=== PATIENT | female | born 1950 | race African-American/Black ===

== ENCOUNTER 2018-04-07 11:26 | Outpatient (CLI) | payer MEDICARE | END 2018-04-07 11:27 | disposition home or self-care (01) | LOC: BICMAMMO 11:26 | PROVIDERS: ATTEND Family Medicine | DX: Z12.31 Encounter for screening mammogram for malignant neoplasm of breast (principal) | CPT/HCPCS: 77063; 77067 ==

== ENCOUNTER 2018-04-15 14:23 | Outpatient (CLI) | payer MEDICARE | END 2018-04-15 14:24 | disposition home or self-care (01) | LOC: BICMAMMO 14:23 | PROVIDERS: ATTEND Family Medicine | DX: R92.8 Other abnormal and inconclusive findings on diagnostic imaging of breast (principal) | CPT/HCPCS: 76642; 77065; G0279 ==

== ENCOUNTER 2018-05-27 12:38 | Outpatient (CLI) | payer MEDICARE ==
[2018-05-27 13:55] LABS: Bilirubin Negative (Negative); Blood, Urine Negative (Negative); Clarity CLEAR (Clear); Glucose, Urine (Dipstick) Negative (Negative); Leukocyte Negative (Negative); Nitrite Negative (Negative); Protein, Urine (Dipstick) Negative (Neg-Trace); Specific Gravity, Urine 1.005 (1.002-1.036); Urobilinogen 0.2 mg/dL (0.2-1.0)
[2018-05-27 14:00] LABS: Bacteria/HPF None Seen HPF (None Seen); Hyaline Casts/LPF 0-3 HYALINE CAST LPF (0-3 Hyaline); RBC/HPF 0-3 HPF (0-3); Squamous Epithelial None Seen HPF (0-3); WBC/HPF None Seen HPF (0-3)
[2018-05-27 14:03] LABS: PTT 29.4 SEC (22.9-36.1); Prothrombin Time 13.1 SEC (12.0-14.7)
[2018-05-27 14:12] LABS: Anion Gap 9 mmol/L (10-20); BUN (Urea Nitrogen) 12 mg/dL (9.8-20.1); Calc. Creatinine Clearance 0 mL/min (70-130); Calcium 9.6 mg/dL (7.8-10.44); Carbon Dioxide 30 mmol/L (23-31); Chloride 105 mmol/L (98-107); Estimated GFR-MDRD 88; Glucose 88 mg/dL (80-115); Potassium 3.3 mmol/L (3.5-5.1); Sodium 141 mmol/L (136-145)
[2018-05-27 14:21] LABS: #Lymphocytes 1.4 thou/uL (1.20-3.40); #Monocytes 0.5 thou/uL (0.11-0.59); #Neutrophils 4.2 thou/uL (1.40-6.50); %Basophils 0.7 % (0.0-1.0); %Eosinophils 0.6 % (0.0-10.0); %Lymphocytes 21.9 % (21.0-51.0); %Monocytes 8.1 % (0.0-10.0); %Neutrophils 68.7 % (42.0-75.0); Hemoglobin 12.1 g/dL (12.0-16.0); Mean Corpuscular HGB CONC 33.6 g/dL (32.0-36.0); Mean Corpuscular Hemoglobin 31.7 pg (27.0-31.0); Mean Corpuscular Volume 94.5 fL (78.0-98.0); Mean Platelet Volume 9.2 fL (7.4-10.4); PLT Morphology Comment PLT clumps seen-ADEQ; RBC Distribution Width 11.3 % (11.5-14.5); White Blood Cell (WBC) Count 6.2 thou/uL (4.8-10.8)
[2018-05-27 16:09] LABS: MDiff Complete? YES
--- NOTE | 2018-05-27 17:15 | EKG ---
Test Reason : Blood Pressure : / mmHG Vent. Rate : 064 BPM Atrial Rate : 064 BPM P-R Int : 188 ms QRS Dur : 110 ms QT Int : 386 ms P-R-T Axes : 058 054 098 degrees QTc Int : 398 ms Normal sinus rhythm Abnormal ECG Confirmed by EVERT DELCID ([id number]) on 05/27/2018 5:14:52 PM Referred By: BRONSON Confirmed By:EVERT DELCID
== END 2018-05-27 12:39 | disposition home or self-care (01) ==
LOC: LABBT 12:38
PROVIDERS: ATTEND Orthopaedic Surgery
DX: Z01.818 Encounter for other preprocedural examination (principal); M17.11 Unilateral primary osteoarthritis, right knee
CPT/HCPCS: 80048; 81001; 85025; 85610; 85730; 87081; 93005; 93010

== ENCOUNTER 2018-06-14 15:01 | Outpatient (CLI) | payer MEDICARE ==
[2018-06-14 16:04] LABS: Anion Gap 14 mmol/L (10-20); BUN (Urea Nitrogen) 19 mg/dL (9.8-20.1); Calc. Creatinine Clearance 0 mL/min (70-130); Calcium 9.5 mg/dL (7.8-10.44); Carbon Dioxide 27 mmol/L (23-31); Chloride 105 mmol/L (98-107); Estimated GFR-MDRD 65; Glucose 131 mg/dL (80-115); Potassium 4.1 mmol/L (3.5-5.1); Sodium 142 mmol/L (136-145)
== END 2018-06-14 15:02 | disposition home or self-care (01) ==
LOC: LABBT 15:01
PROVIDERS: ATTEND Orthopaedic Surgery
DX: Z01.812 Encounter for preprocedural laboratory examination (principal); M17.11 Unilateral primary osteoarthritis, right knee
CPT/HCPCS: 80048; 86850; 86900; 86901

== ENCOUNTER 2018-06-15 06:58 | Inpatient (IN) | payer MEDICARE ==
[2018-05-27 13:05] VITALS: BMI 36.7
[2018-06-15] MEDS ORDERED: Vancomycin HCl 1.5 GM in Sodium Chloride 0.9% 250 ML 300 ML IVPB SCH ×2 (08:15→21:00)
[2018-06-15] MEDS ORDERED: Fentanyl 100 MCG/2 ML VIAL ONE (08:18)
[2018-06-15] MEDS ORDERED: Midazolam HCl 2 mg/2 ml Vial ONE (08:18)
[2018-06-15] MEDS ORDERED: Promethazine HCl 25 MG/ML VIAL IM PRN ×2 (08:28→11:40)
[2018-06-15] MEDS ORDERED: Ketorolac Tromethamine 30 MG/ML VIAL IVP PRN (08:28)
[2018-06-15] MEDS ORDERED: Zolpidem Tartrate 5 MG TAB PO PRN (08:28)
[2018-06-15] MEDS ORDERED: HYDROcodone/Acetaminophen 10/325 mg Tablet PO PRN ×2 (08:28)
[2018-06-15] MEDS ORDERED: Ondansetron HCl/PF 4 MG/2 ML Vial IVP PRN ×2 (08:28→11:40)
[2018-06-15] MEDS ORDERED: traMADol HCl 50 MG TAB PO PRN (08:28)
[2018-06-15] MEDS ORDERED: Fentanyl 100 MCG/2 ML VIAL IV PRN (08:29)
[2018-06-15] MEDS ORDERED: CEFAZOLIN/Water 2 GM/20 ML SYRINGE ONE (08:34)
[2018-06-15] MEDS ORDERED: Sodium Chloride 0.9% 100 ML ONE (08:34)
[2018-06-15] MEDS ORDERED: Bupivacaine/Epinephrine 0.25% 30 ML VIAL ONE (09:33)
[2018-06-15] MEDS ORDERED: HYDROmorphone 2 MG/ML VIAL ONE (09:40)
--- NOTE | 2018-06-15 10:26 | HP ---
ADMITTING DIAGNOSIS: Right knee osteoarthritis. HISTORY OF PRESENT ILLNESS: Ms. Mack is a 68-year-old female who presents to me with constant pain in her right knee, stiffness in the morning long periods of time. Notes weather changes, cannot walk long distances. No previous history of surgery, knee pain 04/06. Previous injection gave her good r elief. The patient lives alone, has 4 steps. She presents today to have surgery. PAST MEDICAL HISTORY: Hypertension, anemia, arthritis, high cholesterol, migraines. PAST SURGICAL HISTORY: Hysterectomy, x3, tonsillectomy, hemorrhoidectomy, colonoscopy, tub al ligation, internal hemorrhoidectomy. MEDICATIONS: Include amlodipine, aspirin, atorvastatin, furosemide, Naproxen. ALLERGIES: No known drug allergies. SOCIAL HISTORY: The patient is single, has 3 children. Retired. No alcohol. Does exercise. PHYSICAL EXAMINATION: VITAL SIGNS: Afebrile, resting comfortably in bed. GENERAL: Alert, communicative, resting comfortably in bed in no acute distress. EXTREMITIES: Right knee shows moderate effusion. Alignment and mild varus lateral and medial joint line tenderness, 90 degrees of motion, 2+ laxity. The patient has sensation intact with 2+ pulse. N ormal skin. No changes. Right knee films show tricompartmental osteoarthritis. IMPRESSION: Right knee osteoarthritis. PLAN: The patient will undergo right total knee arthroplasty. I discussed with the patient the risk s and benefits of procedure including pain, scar, bleeding, infection, damage to vital structures, de creased range of motion or strength, nonunion, fracture need for further surgeries, failure of proced ure, continued pain despite surgical management. The patient understands the risks and benefits and elects to proceed. She will receive vancomycin, Ancef and TXA preoperatively.
[2018-06-15] MEDS ORDERED: Promethazine HCl 25 MG/ML VIAL SLOW IVP PRN (11:40)
[2018-06-15] MEDS ORDERED: HYDROmorphone 2 MG/ML VIAL SLOW IVP PRN (11:40)
[2018-06-15] MEDS ORDERED: Tranexamic Acid 1,000 MG in Sodium Chloride 0.9% 100 ML IVPB SCH (11:45)
[2018-06-15] MEDS ORDERED: Acetaminophen 325 MG TAB PO PRN (13:03)
[2018-06-15] MEDS ORDERED: diphenhydrAMINE 25 MG CAP PO PRN (13:03)
[2018-06-15] MEDS: Sodium Chloride 0.9% 1,000 ML IV SCH (13:34)
[2018-06-15] MEDS ORDERED: Ropivacaine 0.5% HCl/PF (150 MG/30 ML VIAL) ONE (13:47)
[2018-06-15] MEDS ORDERED: Ropivacaine 0.2% HCl/PF (40 MG/20 ML VIAL) ONE (13:47)
--- NOTE | 2018-06-15 14:15 | RAD ---
TWO VIEWS RIGHT KNEE: 06/15/18 HISTORY: Postop total knee. FINDINGS: Postsurgical changes related to right total knee prosthesis are noted. No hardware complication is se en. Subcutaneous edema and emphysema are seen about the knee related to recent postsurgical changes. No fracture or dislocation is seen. IMPRESSION: Postsurgical changes related to recent right total knee replacement. POS: [facility]
[2018-06-15] MEDS ORDERED: Ketorolac Tromethamine 30 MG/ML VIAL ONE (14:35)
[2018-06-15] MEDS ORDERED: Dexamethasone 20 MG/5 ML VIAL ONE (14:35)
[2018-06-15] MEDS ORDERED: Ondansetron HCl/PF 4 MG/2 ML Vial ONE (14:35)
[2018-06-15] MEDS ORDERED: Lidocaine 1% PF 5 ML VIAL ONE (14:35)
[2018-06-15] MEDS ORDERED: PROPOFOL 200 MG/20 ML VIAL ONE (14:35)
[2018-06-15] MEDS ORDERED: ePHEDrine/0.9% NaCl/PF SYRINGE 50 mg/10 ml ONE (14:35)
--- NOTE | 2018-06-15 17:14 | PDOC.PN ---
- Subjective Encounter Start Date: 06/15/18 Encounter Start Time: 16:20 Pt seen for management of medical comorbidities, including hypertension. Denies chest pain, shortness of breath, fevers or chills. - Objective MAR Reviewed: Yes Vital Signs & Weight: Weight Weight 201 lb Additional Labs: Labs reviewed by me Phys Exam - Physical Examination Constitutional: NAD HEENT: moist MMs Neck: supple Respiratory: clear to auscultation bilateral Cardiovascular: RRR Gastrointestinal: soft s/p R knee surgery Neurological: moves all 4 limbs Psychiatric: normal affect Dx/Plan (1) HTN (hypertension) Code(s): I10 - ESSENTIAL (PRIMARY) HYPERTENSION Status: Chronic Comment: Resume amlodipine/benazepril, monitor vital signs and titrate antihypertensives as needed (2) Dyslipidemia Code(s): E78.5 - HYPERLIPIDEMIA, UNSPECIFIED Status: Chronic Comment: continue statin (3) Arthritis Code(s): M19.90 - UNSPECIFIED OSTEOARTHRITIS, UNSPECIFIED SITE Status: Chronic Comment: s/p R knee surgery - Plan * . DVT prophylaxis and pain management per primary service Review of Systems - Review of Systems Cardiovascular: negative: chest pain, palpitations, orthopnea, paroxysmal nocturnal dyspnea, edema, light headedness Gastrointestinal: negative: Nausea, Vomiting, Abdominal Pain, Diarrhea, Constipation, Melena, Hematochezia - Medications/Allergies Allergies/Adverse Reactions: Allergies Allergy/AdvReac Type Severity Reaction Status Date / Time No Known Allergies Allergy Verified 05/27/18 13:06 Medications: Current Medications Acetaminophen (Tylenol) 650 mg PO Q4H PRN PRN Reason: MERINO/ T > 101F; Mild Pain (1-3) Hydrocodone Bitart/Acetaminophen ([place] 10/325) 1 tab PO Q4H PRN PRN Reason: Pain (1-3) Hydrocodone Bitart/Acetaminophen ([place] 10/325) 2 tab PO Q4H PRN PRN Reason: PAIN (4-6) Aspirin (Ecotrin) 81 mg PO BID AV Atorvastatin Calcium (Lipitor) 20 mg PO QAM AV Cefazolin Sodium (Ancef) 2 gm SLOW IVP 0200,1000,1800 AV Stop: 06/16/18 02:01 Diphenhydramine HCl (Benadryl) 25 mg PO Q6H PRN PRN Reason: Itching Fentanyl (Sublimaze) 50 mcg IV Q1H PRN PRN Reason: BREAKTHROUGH PAIN Ferrous Gluconate (Fergon) 324 mg PO BID [facility] Furosemide (Lasix) 20 mg PO QAM AV Ropivacaine 250 ml/ Device 250 mls @ 0 mls/hr NERVE BLCK INF [facility] Sodium Chloride (Normal Saline 0.9%) 1,000 mls @ 100 mls/hr IV .Q10H AV Last Admin: 06/15/18 13:34 Dose: Not Given Vancomycin HCl 1.5 gm/ Sodium (Chloride) 300 mls @ 200 mls/hr IVPB 2100 AV Stop: 06/15/18 22:29 Iron/Minerals/Multivitamins (Theragran M) 1 tab PO DAILY [facility] Ketorolac Tromethamine (Toradol) 15 mg IVP Q6H PRN PRN Reason: Moderate Pain (4-6) Stop: 06/18/18 08:29 Non-Formulary Medication (Amlodipine Besylate/Benazepril [Amlodipine Besylate/ Benazepril]) 1 tab PO QAM [facility] Ondansetron HCl (Zofran) 4 mg IVP Q6H PRN PRN Reason: Nausea/Vomiting Last Admin: 06/15/18 14:55 Dose: 4 mg Promethazine HCl (Phenergan) 12.5 mg IM Q4H PRN PRN Reason: Nausea Senna/Docusate Sodium (Senokot S) 2 tab PO BID [facility] Sodium Chloride (Flush - Normal Saline) 10 ml IVF Q12HR [facility] Sodium Chloride (Flush - Normal Saline) 10 ml IVF PRN PRN PRN Reason: Saline Flush Sodium Chloride (Flush - Normal Saline) 10 ml IVF PRN PRN PRN Reason: Saline Flush Tramadol HCl (Ultram) 50 mg PO Q6H PRN PRN Reason: Mild Pain (1-3) Tramadol HCl (Ultram) 100 mg PO Q6H PRN PRN Reason: Moderate Pain 4-6 Zolpidem Tartrate (Ambien) 5 mg PO HSPRN PRN PRN Reason: Insomnia
[2018-06-15] MEDS: CEFAZOLIN/Water 2 GM/20 ML SYRINGE SLOW IVP SCH (17:21)
[2018-06-15] MEDS: traMADol HCl 50 MG TAB PO PRN (20:20)
[2018-06-15] MEDS: Aspirin 81 mg Enteric Coated Tablet PO SCH (20:21)
[2018-06-15] MEDS: Ferrous Gluconate 324 MG TAB PO SCH (20:21)
[2018-06-15] MEDS: Senokot S 8.6-50 MG TAB PO SCH (20:21)
[2018-06-16] MEDS: Sodium Chloride 0.9% 1,000 ML IV SCH ×3 (00:09→19:37)
[2018-06-16] MEDS: CEFAZOLIN/Water 2 GM/20 ML SYRINGE SLOW IVP SCH (01:36)
[2018-06-16 06:04] LABS: Hemoglobin 10.2 g/dL (12.0-16.0); Mean Corpuscular HGB CONC 33.2 g/dL (32.0-36.0); Mean Corpuscular Hemoglobin 31.8 pg (27.0-31.0); Mean Corpuscular Volume 95.6 fL (78.0-98.0); Mean Platelet Volume 9.6 fL (7.4-10.4); Platelet Count 163 thou/uL (130-400); Red Blood Cell (RBC) Count 3.23 mill/uL (4.20-5.40); White Blood Cell (WBC) Count 10.3 thou/uL (4.8-10.8)
[2018-06-16] MEDS: Senokot S 8.6-50 MG TAB PO SCH ×2 (08:11→20:53)
[2018-06-16] MEDS: Aspirin 81 mg Enteric Coated Tablet PO SCH ×2 (08:12→20:52)
[2018-06-16] MEDS: Multivitamin W/ Minerals 1 TAB PO SCH (08:12)
[2018-06-16] MEDS: Atorvastatin Calcium 20 MG TAB PO SCH (08:12)
[2018-06-16] MEDS: Ferrous Gluconate 324 MG TAB PO SCH ×2 (08:12→20:53)
[2018-06-16] MEDS: Furosemide 20 MG TAB PO SCH (08:12)
[2018-06-16] MEDS: Amlodipine 5 mg/Benazepril 20 mg CAP PO SCH (09:58)
--- NOTE | 2018-06-16 11:44 | OP ---
DATE OF PROCEDURE: 06/15/2018 PREOPERATIVE DIAGNOSIS: Right knee osteoarthritis with flexion contracture. POSTOPERATIVE DIAGNOSIS: Right knee osteoarthritis with flexion contracture. PROCEDURE PERFORMED: Right total knee arthroplasty. STAFF: Dr. Gary Vigil [employer] SUPERVISOR: JOSIANE Cornoy ANESTHESIA: [place]. The patient received a LMA with a single shot sciatic and had a canal indwelling catheter. ESTIMATED BLOOD LOSS: 100 mL. TOURNIQUET TIME: 77 minutes at 300 mmHg. ANTIBIOTICS: Ancef 2 grams and vancomycin 1.5 grams, TXA 1 gram. IMPLANTS: [place] size 4 femur, size 3 tibia, 11 cruciate retaining and A29 patella [place] Triathlon implants, Simplex cement. COMPLICATIONS: None. HISTORY OF PRESENT ILLNESS: Ms. Mack is a pleasant 68-year-old female who presented to me with right knee pain that has been present for years. The patient had good pain relief with an injection. She had severe valgus deformity with about 29 degrees of motion. I discussed with her pre and postoperative care as well as the possible complications. I discussed the risks and benefits of surgery to include pain, scar, bleeding, infection, damage to vital structures, decreased range of motion or strength, need for further surgeries, failure of procedure, revision, fracture above or below, continued stiffness. I discussed given the patient's preoperative stiffness I was most concerned about that postoperatively. She understood the risks and benefits and would like to proceed PROCEDURE IN DETAIL: Timeout was performed designating the patient's right lower extremity as the operative site based on site, consents, markings. After completion of timeout, the patient's right lower extremity was prepped and draped in sterile fashion. Tourniquet was brought up and left for a total of 77 minutes. Anterior midline approach medial patellar arthrotomy was performed. We excised the fat pad, remove osteophytes. The patient was difficult to sublux because of her significant posterior osteophytes as well as patellar osteophytes. We knocked off some osteophytes off the trochlea as well as cleaned up the patella to help to better ellie the patella and flex the patient. We pinned our tray into position. We mapped and cut 0 degrees varus valgus with about 4 degrees anterior slope and 8 and 10 respectively. We then placed our menisci, we did a medial soft tissue release. We placed our guide, 3 degrees of external rotation. We pinned our tray into position. We cut our size 4. There was a large medial osteophyte that still remained this is a deformity. We removed all the anterior, posterior chamfer cuts, removed osteophytes decompressed the gutter. We then had taken down the patient's ACL, exposed the PCL. We had to do a notchplasty and knocked out some of the overgrown bone on ACL and PCL. After we brought the tibia, we mapped out the tibia, cut at 4 degrees posterior slope with about 1 and 6 mm respectively mediolaterally. We then removed all the bone. We removed our medial osteophyte , placed our limb stove mechanic laterally. We did decompressed the large bone posterior decompressive the MCL both by taking medial plateau osteophytes as well as the cleaning gutter more, we decreased the intact PCL and did tenting. After we had done that we completely remove the meniscus. We moved laterally, did the same thing, removed lateral meniscus, decompressed the knee, completely decompressed the PCL, removed the remnant ACL. I felt like we had a good overall visualization placed at 3. We floated a 3 with a 9 and moved up to an 11, had good full extension, flexion, good rotation. We pinned the tray based off of floating within the knee for rotational alignment, the pin down the tibia as well as rotation with the anterior tibial tubercle. I liked the overall alignment and position, we pinned it in place. We actually went from a 9, like I said to an 11. After completion of this she had full extension, good overall flexion, good overall rotation, was slightly tight in flexion, otherwise looked good. We then cut the patient's patella. She had a very essentially worn patella. We cut from about 25 to 24 and sized to about 12-13 mm. We drilled our A29 patella. The patient tracked well. We then drilled our lugs for our femur, cut our keel for tibia, removed all implants. We cemented our tibia, placed our poly after we had removed excess cement. We centered our femur, removed excess cement. We then brought the patient in extension, removed all cement, and flexion to ensure there was nothing else in the notch or any other loose bodies. Washed the joint. We then closed in a standard position first, made our lithotomy lineup with #2 Vicryl. We did 2 Quill, 0 Quill, 2-0 Quill in a semi-flexed position. We then placed glue for the skin. The patient will be admitted for postop protocol. She received vancomycin, Ancef and TXA. Postop the patient will be followed in-house. PARVEZ
[2018-06-16] MEDS: Ropivacaine HCl/PF 250 ML in Premix Bag 1 BAG NERVE BLCK SCH (12:28)
[2018-06-16] MEDS: traMADol HCl 50 MG TAB PO PRN (17:49)
[2018-06-17] MEDS: Sodium Chloride 0.9% 1,000 ML IV SCH ×2 (03:24→15:46)
[2018-06-17 05:33] LABS: Hemoglobin 10.1 g/dL (12.0-16.0); Mean Corpuscular HGB CONC 33.8 g/dL (32.0-36.0); Mean Corpuscular Hemoglobin 32.1 pg (27.0-31.0); Mean Corpuscular Volume 94.8 fL (78.0-98.0); Mean Platelet Volume 9.4 fL (7.4-10.4); Platelet Count 128 thou/uL (130-400); RBC Distribution Width 11.1 % (11.5-14.5); Red Blood Cell (RBC) Count 3.15 mill/uL (4.20-5.40); White Blood Cell (WBC) Count 8.2 thou/uL (4.8-10.8)
[2018-06-17] MEDS: Ferrous Gluconate 324 MG TAB PO SCH ×2 (09:25→20:18)
[2018-06-17] MEDS: Senokot S 8.6-50 MG TAB PO SCH ×2 (09:25→20:21)
[2018-06-17] MEDS: Amlodipine 5 mg/Benazepril 20 mg CAP PO SCH (09:25)
[2018-06-17] MEDS: Furosemide 20 MG TAB PO SCH (09:26)
[2018-06-17] MEDS: Multivitamin W/ Minerals 1 TAB PO SCH (09:26)
[2018-06-17] MEDS: Atorvastatin Calcium 20 MG TAB PO SCH (09:26)
[2018-06-17] MEDS: Aspirin 81 mg Enteric Coated Tablet PO SCH ×2 (09:26→20:19)
[2018-06-17] MEDS: Ropivacaine HCl/PF 250 ML in Premix Bag 1 BAG NERVE BLCK SCH (14:48)
--- NOTE | 2018-06-17 15:08 | PDOC.PN ---
- Subjective Encounter Start Date: 06/16/18 Encounter Start Time: 09:15 -: old records requested/rev Pt seen and examined, chart reviewed in its entirety, this is my first visit with this patient Pt sitting on the side of the bed, about to get up with PT. epidural still in place. NO f/C, no N/V/dc/, pain controlled adequately No new complaints All systems reviewed and neg x as above - Objective MAR Reviewed: Yes Vital Signs & Weight: Vital Signs (12 hours) Temp Pulse Resp BP Pulse Ox 06/17/18 11:52 98.7 F 62 14 115/45 L 95 06/17/18 08:49 98.7 F 64 14 128/69 91 L 06/17/18 07:54 95 06/17/18 03:58 99.1 F 64 19 134/73 95 Weight Admit Weight 201 lb Weight 201 lb I&O: 06/16/18 06/17/18 06/18/18 06:59 06:59 06:59 Intake Total 2500 2040 Output Total 2200 375 Balance 300 1665 Result Diagrams: 06/17/18 04:38 Radiology Reviewed by me: Yes EKG Reviewed by me: Yes Phys Exam - Physical Examination Constitutional: NAD HEENT: PERRLA, moist MMs, sclera anicteric, oral pharynx no lesions Neck: no nodes, no JVD, supple, full ROM Respiratory: no wheezing, no rales, no rhonchi, clear to auscultation bilateral Cardiovascular: RRR, no significant murmur, no rub Gastrointestinal: soft, non-tender, no distention, positive bowel sounds Musculoskeletal: edema present Neurological: non-focal, normal sensation, moves all 4 limbs Lymphatic: no nodes Psychiatric: normal affect, A&O x 3 Skin: no rash, normal turgor, cap refill <2 seconds Dx/Plan (1) Arthritis Code(s): M19.90 - UNSPECIFIED OSTEOARTHRITIS, UNSPECIFIED SITE Status: Chronic Comment: s/p R knee surgery (2) Dyslipidemia Code(s): E78.5 - HYPERLIPIDEMIA, UNSPECIFIED Status: Chronic Comment: continue statin (3) HTN (hypertension) Code(s): I10 - ESSENTIAL (PRIMARY) HYPERTENSION Status: Chronic Qualifiers: Hypertension type: essential hypertension Qualified Code(s): I10 - Essential (primary) hypertension Comment: contine amlodipine/benazepril, monitor vital signs and titrate antihypertensives as needed - Plan cont current plan of care, PT/OT, executive secretary social welfare, out of bed/ambulate * .
--- NOTE | 2018-06-17 15:09 | PDOC.PN ---
- Subjective Encounter Start Date: 06/17/18 Encounter Start Time: 15:15 doing well, no acute events, no new complaint,s pain controlled No f/c, no n/V/D/C, no CP or SOB All systems reviewed and neg x as above - Objective MAR Reviewed: Yes Vital Signs & Weight: Vital Signs (12 hours) Temp Pulse Resp BP Pulse Ox 06/17/18 11:52 98.7 F 62 14 115/45 L 95 06/17/18 08:49 98.7 F 64 14 128/69 91 L 06/17/18 07:54 95 06/17/18 03:58 99.1 F 64 19 134/73 95 Weight Admit Weight 201 lb Weight 201 lb I&O: 06/16/18 06/17/18 06/18/18 06:59 06:59 06:59 Intake Total 2500 2040 Output Total 2200 375 Balance 300 1665 Result Diagrams: 06/17/18 04:38 Phys Exam - Physical Examination Constitutional: NAD HEENT: PERRLA, moist MMs, sclera anicteric, oral pharynx no lesions Neck: no nodes, no JVD, supple, full ROM Respiratory: no wheezing, no rales, no rhonchi, clear to auscultation bilateral Cardiovascular: RRR, no significant murmur, no rub Gastrointestinal: soft, non-tender, no distention, positive bowel sounds Musculoskeletal: no edema, pulses present Neurological: non-focal, normal sensation, moves all 4 limbs Lymphatic: no nodes Psychiatric: normal affect, A&O x 3 Skin: no rash, normal turgor, cap refill <2 seconds Dx/Plan (1) Arthritis Code(s): M19.90 - UNSPECIFIED OSTEOARTHRITIS, UNSPECIFIED SITE Status: Chronic Comment: s/p R knee surgery (2) Dyslipidemia Code(s): E78.5 - HYPERLIPIDEMIA, UNSPECIFIED Status: Chronic Comment: continue statin (3) HTN (hypertension) Code(s): I10 - ESSENTIAL (PRIMARY) HYPERTENSION Status: Chronic Qualifiers: Hypertension type: essential hypertension Qualified Code(s): I10 - Essential (primary) hypertension Comment: contine amlodipine/benazepril, monitor vital signs and titrate antihypertensives as needed - Plan cont current plan of care, PT/OT, social work case manager, out of bed/ambulate * . dispo per pt, primary team, CM
[2018-06-18] MEDS: Sodium Chloride 0.9% 1,000 ML IV SCH (00:18)
[2018-06-18 05:33] LABS: Hemoglobin 9.6 g/dL (12.0-16.0); Mean Corpuscular HGB CONC 32.8 g/dL (32.0-36.0); Mean Corpuscular Hemoglobin 31.7 pg (27.0-31.0); Mean Corpuscular Volume 96.4 fL (78.0-98.0); Platelet Count 164 thou/uL (130-400); RBC Distribution Width 11.1 % (11.5-14.5); Red Blood Cell (RBC) Count 3.04 mill/uL (4.20-5.40); White Blood Cell (WBC) Count 8.4 thou/uL (4.8-10.8)
[2018-06-18] MEDS: Ferrous Gluconate 324 MG TAB PO SCH (10:00)
[2018-06-18] MEDS: Aspirin 81 mg Enteric Coated Tablet PO SCH (10:00)
[2018-06-18] MEDS: Multivitamin W/ Minerals 1 TAB PO SCH (10:00)
[2018-06-18] MEDS: Atorvastatin Calcium 20 MG TAB PO SCH (10:00)
[2018-06-18] MEDS: Furosemide 20 MG TAB PO SCH (10:01)
[2018-06-18] MEDS: Senokot S 8.6-50 MG TAB PO SCH (10:01)
[2018-06-18 12:19] VITALS: BP 137/86; TEMP 99.4
--- NOTE | 2018-06-18 12:24 | PDOC.PN ---
- Subjective Encounter Start Date: 06/18/18 Encounter Start Time: 12:22 follow up for medical management. to [facility] pending insurance approval , expecting to go today No F/C, no N/V/d/C, pain controlled, no acute overnight events, no new complaints All systesm reviewed and neg x as above - Objective MAR Reviewed: Yes Vital Signs & Weight: Vital Signs (12 hours) Temp Pulse Resp BP BP Pulse Ox 06/18/18 12:18 99.4 F 67 16 137/86 95 06/18/18 07:19 99.3 F 78 16 137/67 92 L 06/18/18 05:10 99.3 F 06/18/18 04:40 99.6 F 06/18/18 04:23 100 F H 67 18 131/69 95 06/18/18 00:32 99.6 F 81 18 119/74 93 L Weight Admit Weight 201 lb Weight 201 lb I&O: 06/17/18 06/18/18 06/19/18 06:59 06:59 06:59 Intake Total 2040 1580 Output Total 375 Balance 1665 1580 Result Diagrams: 06/18/18 05:06 Phys Exam - Physical Examination Constitutional: NAD HEENT: PERRLA, moist MMs, sclera anicteric, oral pharynx no lesions Neck: no nodes, no JVD, supple, full ROM Respiratory: no wheezing, no rales, no rhonchi, clear to auscultation bilateral Cardiovascular: RRR, no significant murmur, no rub Gastrointestinal: soft, non-tender, no distention, positive bowel sounds Musculoskeletal: edema present Neurological: non-focal, normal sensation, moves all 4 limbs Lymphatic: no nodes Psychiatric: normal affect, A&O x 3 Skin: no rash, normal turgor, cap refill <2 seconds Dx/Plan (1) Dyslipidemia Code(s): E78.5 - HYPERLIPIDEMIA, UNSPECIFIED Status: Chronic Comment: continue statin (2) HTN (hypertension) Code(s): I10 - ESSENTIAL (PRIMARY) HYPERTENSION Status: Chronic Qualifiers: Hypertension type: essential hypertension Qualified Code(s): I10 - Essential (primary) hypertension Comment: contine amlodipine/benazepril, monitor vital signs and titrate antihypertensives as needed (3) Arthritis Code(s): M19.90 - UNSPECIFIED OSTEOARTHRITIS, UNSPECIFIED SITE Status: Chronic Comment: s/p R knee surgery - Plan cont current plan of care, PT/OT, high school social science teacher, out of bed/ambulate * .
[2018-06-18] MEDS: Amlodipine 5 mg/Benazepril 20 mg CAP PO SCH (13:31)
== END 2018-06-18 14:57 | disposition swing bed (61) | DRG 470 ==
LOC: SDC 06:58 → SJJU 12:28
PROVIDERS: ADMIT Orthopaedic Surgery; ATTEND Orthopaedic Surgery
PROC: 0SRC0J9 Replacement of Right Knee Joint with Synthetic Substitute, Cemented, Open Approach (ICD-10-PCS; principal; 2018-06-15)
DX: M17.11 Unilateral primary osteoarthritis, right knee (principal); I10 Essential (primary) hypertension; G43.909 Migraine, unspecified, not intractable, without status migrainosus; E78.5 Hyperlipidemia, unspecified; Z90.710 Acquired absence of both cervix and uterus
CPT/HCPCS: 36415; 80048; 85027; 86850; 86900; 86901; A4216; C1713; C1776; G8978-GP-CK; G8979-GP-CI; G8987-GO-CJ; G8988-GO-CI; J1100; J1170; J1885; J2001; J2250; J2405; J2704; J2795; J3010; J3370; J7050

== ENCOUNTER 2019-10-17 07:14 | Outpatient (CLI) | payer MEDICARE ==
--- NOTE | 2019-10-24 18:33 | EKG ---
Test Reason : Blood Pressure : / mmHG Vent. Rate : 067 BPM Atrial Rate : 067 BPM P-R Int : 186 ms QRS Dur : 108 ms QT Int : 336 ms P-R-T Axes : 061 071 -31 degrees QTc Int : 355 ms Normal sinus rhythm Nonspecific T wave abnormality Abnormal ECG When compared with ECG of 27-MAY-2018 12:53, T wave inversion no longer evident in Lateral leads Confirmed by JUAN DAVID ANGELO, SReanna ([id number]) on 10/24/2019 6:32:43 PM Referred By: BRONSON Confirmed By:DR. Bala FALL MD
== END 2019-10-17 07:15 | disposition home or self-care (01) ==
LOC: LABBT 07:14
PROVIDERS: ATTEND Orthopaedic Surgery
DX: Z01.810 Encounter for preprocedural cardiovascular examination (principal); M16.12 Unilateral primary osteoarthritis, left hip
CPT/HCPCS: 93005; 93010

== ENCOUNTER 2019-10-17 10:30 | Inpatient (IN) | payer MEDICARE ==
[2019-10-17 10:26] VITALS: BMI 36.6
[2019-10-17 11:25] LABS: #Basophils 0.1 thou/uL (0.0-0.2); #Eosinphils 0.1 thou/uL (0.0-0.7); #Lymphocytes 1.2 thou/uL (1.20-3.40); #Monocytes 0.5 thou/uL (0.11-0.59); #Neutrophils 4.8 thou/uL (1.40-6.50); %Basophils 0.8 % (0.0-1.0); %Eosinophils 1.1 % (0.0-10.0); %Lymphocytes 18.2 % (21.0-51.0); %Monocytes 7.7 % (0.0-10.0); %Neutrophils 72.2 % (42.0-75.0); Hemoglobin 12.3 g/dL (12.0-16.0); Mean Corpuscular HGB CONC 33.9 g/dL (32.0-36.0); Mean Corpuscular Hemoglobin 32.5 pg (27.0-31.0); Mean Platelet Volume 8.5 fL (7.4-10.4); Platelet Count 191 thou/uL (130-400); Red Blood Cell (RBC) Count 3.79 mill/uL (4.20-5.40); White Blood Cell (WBC) Count 6.7 thou/uL (4.8-10.8)
[2019-10-17 11:39] LABS: Prothrombin Time 13.4 SEC (12.0-14.7)
[2019-10-17 11:40] LABS: Anion Gap 12 mmol/L (10-20); BUN (Urea Nitrogen) 15 mg/dL (9.8-20.1); Calc. Creatinine Clearance 0 mL/min (70-130); Calcium 9.6 mg/dL (7.8-10.44); Carbon Dioxide 29 mmol/L (23-31); Chloride 106 mmol/L (98-107); Estimated GFR-MDRD 86; Glucose 110 mg/dL (83-110); Potassium 3.6 mmol/L (3.5-5.1); Sodium 143 mmol/L (136-145)
[2019-10-17 12:09] LABS: Bacteria/HPF None Seen HPF (None Seen); Bilirubin Negative (Negative); Blood, Urine Negative (Negative); Clarity Clear (Clear); Glucose, Urine (Dipstick) Normal (Negative); Leukocyte Negative Leu/uL (Negative); Nitrite Negative (Negative); Protein, Urine (Dipstick) Negative (Neg-Trace); RBC/HPF 0-3 HPF (0-3); Squamous Epithelial 0-3 HPF (0-3); Urobilinogen Normal mg/dL (Less than 2); WBC/HPF 0-3 HPF (0-3)
[2019-10-18] MEDS ORDERED: Midazolam HCl 2 mg/2 ml Vial ONE (08:12)
[2019-10-18] MEDS ORDERED: Fentanyl 100 MCG/2 ML VIAL ONE ×3 (08:12→12:06)
[2019-10-18] MEDS ORDERED: Sodium Chloride 0.9% 100 ML ONE (08:19)
[2019-10-18] MEDS ORDERED: Vancomycin 1.5 GRAM/300 ML BAG 1.5 GM/300 ML BAG ONE (08:19)
[2019-10-18] MEDS ORDERED: Tranexamic Acid 1,000 MG/10 ML VIAL ONE (08:19)
[2019-10-18] MEDS ORDERED: diphenhydrAMINE 50 MG/ML VIAL IM PRN (09:00)
[2019-10-18] MEDS ORDERED: Hydrocerin (Eucerin) Cream 120 gm Jar TOP PRN (09:00)
[2019-10-18] MEDS ORDERED: Promethazine HCl 25 MG SUPP PR PRN (09:00)
[2019-10-18] MEDS ORDERED: diphenhydrAMINE 50 MG/ML VIAL IVP PRN (09:00)
[2019-10-18] MEDS ORDERED: Ketorolac Tromethamine 30 MG/ML VIAL IVP PRN (09:00)
[2019-10-18] MEDS ORDERED: HYDROcodone/Acetaminophen 5/325 mg Tablet PO PRN (09:00)
[2019-10-18] MEDS ORDERED: Ondansetron PF 4 MG/2 ML Vial IVP PRN (09:00)
[2019-10-18] MEDS ORDERED: Promethazine HCl 25 MG/ML VIAL IM PRN ×2 (09:00→11:13)
[2019-10-18] MEDS ORDERED: Zolpidem Tartrate 5 MG TAB PO PRN (09:00)
[2019-10-18] MEDS ORDERED: Bupivacaine 0.25% 10 ML VIAL EPIDURAL PRN (09:00)
[2019-10-18] MEDS ORDERED: Naloxone HCl 0.4 mg/ml Vial IV PRN (09:00)
[2019-10-18] MEDS ORDERED: Naloxone HCl 0.4 mg/ml Vial IVP PRN (09:00)
[2019-10-18] MEDS ORDERED: traMADol HCl 50 MG TAB PO PRN ×2 (09:00)
[2019-10-18] MEDS ORDERED: diphenhydrAMINE 25 MG CAP PO PRN (09:00)
[2019-10-18] MEDS ORDERED: Ropivacaine 0.2% HCl/PF 20 ML ONE (09:42)
[2019-10-18] MEDS ORDERED: PACU-Morphine 4MG/ML VIAL SLOW IVP PRN (11:13)
[2019-10-18] MEDS ORDERED: Promethazine HCl 25 MG/ML VIAL SLOW IVP PRN (11:13)
[2019-10-18] MEDS ORDERED: Meperidine HCl/PF 25 MG/ML VIAL SLOW IVP PRN (11:13)
[2019-10-18] MEDS ORDERED: Lidocaine 1.5%/Epinephrine 1:200,000 5 ML AMPUL IJ ONE (11:32)
[2019-10-18] MEDS ORDERED: Ondansetron PF 4 MG/2 ML Vial ONE (11:32)
[2019-10-18] MEDS ORDERED: Lidocaine 1% PF 5 ML VIAL ONE (11:32)
[2019-10-18] MEDS ORDERED: Glycopyrrolate 0.2 MG/ML 5 ML SYRINGE ONE (11:32)
[2019-10-18] MEDS ORDERED: Rocuronium Bromide 10 MG/ML (10ML VIAL) ONE (11:32)
[2019-10-18] MEDS ORDERED: Dexamethasone 20 MG/5 ML VIAL ONE (11:32)
[2019-10-18] MEDS ORDERED: Metoclopramide HCl 10 MG/2 ML VIAL ONE (11:32)
[2019-10-18] MEDS ORDERED: ePHEDrine/0.9% NaCl/PF SYRINGE 50 mg/10 ml ONE (11:32)
[2019-10-18] MEDS ORDERED: PROPOFOL 200 MG/20 ML VIAL ONE (11:32)
[2019-10-18] MEDS ORDERED: HYDROcodone/Acetaminophen 10/325 mg Tablet PO PRN ×2 (12:04)
[2019-10-18] MEDS ORDERED: Acetaminophen 325 MG TAB PO PRN (12:04)
--- NOTE | 2019-10-18 13:13 | RAD ---
Exam: XR Hip Lt 1 View HISTORY: Post left total hip prosthesis COMPARISON: AP view pelvis also obtained on this date FINDINGS: As noted on the AP view pelvis, there is evidence of a left total hip prosthesis without evidence of a hardware complication. No obvious fracture is appreciated. IMPRESSION: Postsurgical changes related to left total hip prosthesis.
--- NOTE | 2019-10-18 13:13 | RAD ---
EXAM: XR Pelvis AP STANDARD PROVIDED CLINICAL HISTORY: Total hip arthroplasty. COMPARISON: None FINDINGS: There are postsurgical changes related to left total hip prosthesis. No obvious hardware complication is seen on this exam. No fracture or dislocation is identified. There is mild osteoarthritis involving the right hip. Mild degenerative changes are seen at the pubic symphysis. Mora catheter ov erlies the midline of the pelvis. IMPRESSION: 1. Evidence of left total hip prosthesis.
[2019-10-18] MEDS: Dextrose 5 %-0.45 % NaCl 1,000 ML IV SCH ×2 (16:18→23:42)
[2019-10-18] MEDS: CEFAZOLIN 2 GM in Premix Bag 1 BAG IVPB SCH (16:18)
[2019-10-18] MEDS ORDERED: Chloraseptic Spray 180 ml Bottle PO PRN (18:09)
[2019-10-18] MEDS ORDERED: Acetaminophen 650 MG Suppository PR PRN (18:33)
[2019-10-18] MEDS ORDERED: Vancomycin HCl 1.5 GM in Sodium Chloride 0.9% 250 ML 300 ML IVPB SCH (20:30)
[2019-10-18] MEDS ORDERED: Famotidine/PF 20 mg/2ml Vial SLOW IVP SCH (21:00)
[2019-10-18] MEDS: Ferrous Gluconate 324 MG TAB PO SCH (21:03)
--- NOTE | 2019-10-18 21:03 | CON ---
DATE OF CONSULTATION: 10/18/2019 TIME OF ASSESSMENT: 1400. REASON FOR CONSULTATION: Medical management. CHIEF COMPLAINT: Sore throat. HISTORY OF PRESENT ILLNESS: Ms. Mack is a pleasant 69-year-old woman, who is status post a left total hip replacement done earlier today. The patient currently states she feels well except for mild sore throat and swelling of the left side of her upper and lower lip. She denies having any difficulty with her breathing or swelling of her tongue. No rash or itching. The patient states that she was told she likely had a reaction to the tape that was on her lip during the surgery. She has been given Benadryl. Other than that, she has absolutely no complaints. Denies any chest pain or shortness of breath. No dizziness. She has had something to eat and states she tolerated it well without any nausea or vomiting. Denies any abdominal pain. PAST MEDICAL HISTORY: 1. Hyperlipidemia. 2. Hypertension. PAST SURGICAL HISTORY: 1. . 2. Hysterectomy. 3. Tonsillectomy. 4. Left total hip replacement done today, 10/18/2019. SOCIAL HISTORY: The patient lives with her family. Denies any alcohol consumption, tobacco use, or illicit drug use. FAMILY HISTORY: Reports a history of CHF in her mother. ALLERGIES: NO KNOWN DRUG ALLERGIES. CURRENT MEDICATIONS: 1. Amlodipine. 2. Aspirin. 3. Atorvastatin. 4. Vitamin D3. 5. Vitamin . 6. Naproxen. PHYSICAL EXAMINATION: GENERAL: The patient appears well developed, well nourished, is in no acute distress. VITAL SIGNS: Temperature 97.7, pulse 65, respirations 18, O2 saturation 98% on 2 L by nasal cannula, blood pressure 115/67. HEENT: Normocephalic and atraumatic. Pupils are equal, round, and reactive to light. Sclerae without icterus. Oropharynx is clear. However, left upper and lower lip notable for swelling. No erythema. No bleeding or discharge. No other areas of swelling or edema involving her face. Tongue, unremarkable. NECK: Supple with some slight tenderness with palpation of the left side of her neck. Full range of motion. LUNGS: Clear to auscultation bilaterally without any wheezes, rales, or rhonchi. CARDIAC: Regular rate and rhythm. ABDOMEN: Soft, obese, nontender, nondistended. Normoactive bowel sounds present. No guarding or rigidity. No renal angle tenderness. EXTREMITIES: No lower leg swelling or edema. Mechanical SCDs in place. NEUROLOGIC: Alert and oriented x3. SKIN: Warm and dry. No rash or hives. LABORATORY DATA: White count 6.7, hemoglobin 12.3, hematocrit 36.4, platelets 191, neutrophils 72.2. PT 13.4, INR 1. Sodium 143, potassium 3.6, BUN 15, creatinine 0.80, GFR 86, glucose 110, calcium 9.6. Urinalysis unremarkable. Hip x-ray done on 10/18/2018. Postsurgical changes related to left total hip prosthesis. Similar findings seen on the pelvic x-ray. IMPRESSION AND PLAN: 1. Ms. Mack is a pleasant 69-year-old woman, who is status post left total hip replacement, referred for medical management. The patient apparently had some sort of localized reaction to the tape that was on her lip during surgery. That was removed and she has some residual swelling, limited to the left side of her upper and lower lip with no erythema or any other rash or hives involving her face or any other part of her body. Mild sore throat. We will give her Chloraseptic to help with this. No dysphagia. No difficulty breathing. She has Benadryl ordered p.r.n. She will need continuous monitoring. 2. She has a known history of hypertension and hyperlipidemia. Her home medications have already been reconciled. Continue to monitor blood pressure. We will repeat labs in the morning. 3. GI prophylaxis with famotidine. 4. Deep venous thrombosis prophylaxis with mechanical SCDs. 5. The patient is full code. Surrogate decision maker is Brennanjosue Mack. The patient's case discussed with attending who agrees with plan of care as described above. Job ID: [id number]
[2019-10-18] MEDS: Atorvastatin Calcium 20 MG TAB PO SCH (21:04)
[2019-10-18] MEDS: Aspirin 81 mg Enteric Coated Tablet PO SCH (21:04)
[2019-10-18] MEDS: Senokot S 8.6-50 MG TAB PO SCH (21:04)
[2019-10-19] MEDS: CEFAZOLIN 2 GM in Premix Bag 1 BAG IVPB SCH (00:13)
[2019-10-19] MEDS: fentaNYL Citrate/PF 500 MCG, Bupivacaine 10 ML in Sodium Chloride 0.9% 80 ML EPIDURAL SCH ×2 (03:58→20:25)
[2019-10-19 05:40] LABS: #Lymphocytes 0.5 thou/uL (1.20-3.40); #Neutrophils 6.4 thou/uL (1.40-6.50); %Basophils 0.2 % (0.0-1.0); %Lymphocytes 6.5 % (21.0-51.0); %Monocytes 12.7 % (0.0-10.0); %Neutrophils 80.6 % (42.0-75.0); Hemoglobin 9.8 g/dL (12.0-16.0); Mean Corpuscular Hemoglobin 32.5 pg (27.0-31.0); Mean Corpuscular Volume 95.6 fL (78.0-98.0); Mean Platelet Volume 8.4 fL (7.4-10.4); Platelet Count 171 thou/uL (130-400); RBC Distribution Width 10.8 % (11.5-14.5); Red Blood Cell (RBC) Count 3.01 mill/uL (4.20-5.40); White Blood Cell (WBC) Count 7.9 thou/uL (4.8-10.8)
[2019-10-19 05:53] LABS: Anion Gap 11 mmol/L (10-20); BUN (Urea Nitrogen) 12 mg/dL (9.8-20.1); Calc. Creatinine Clearance 88 mL/min (70-130); Calcium 8.5 mg/dL (7.8-10.44); Carbon Dioxide 28 mmol/L (23-31); Chloride 104 mmol/L (98-107); Estimated GFR-MDRD 81; Glucose 152 mg/dL (83-110); Sodium 139 mmol/L (136-145)
[2019-10-19] MEDS: Senokot S 8.6-50 MG TAB PO SCH ×2 (08:49→20:28)
[2019-10-19] MEDS: Multivitamin W/ Minerals 1 TAB PO SCH (08:49)
[2019-10-19] MEDS: Aspirin 81 mg Enteric Coated Tablet PO SCH ×2 (08:50→20:25)
[2019-10-19] MEDS: Cyanocobalamin (Vitamin B-12) 1,000 MCG TAB PO SCH (08:50)
[2019-10-19] MEDS: Ferrous Gluconate 324 MG TAB PO SCH ×2 (08:50→20:28)
[2019-10-19] MEDS ORDERED: Lisinopril 20 MG TAB PO SCH (09:00)
[2019-10-19] MEDS ORDERED: Prevnar 13-Val Conj/PF 0.5 ML SYRINGE IM ONE (09:00)
[2019-10-19] MEDS ORDERED: Amlodipine 10 MG TAB PO SCH (09:00)
[2019-10-19] MEDS ORDERED: FLU VACC TS2019-20(65YR UP)/PF 180 MCG/0.5 ML SYRINGE IM ONE (09:00)
[2019-10-19] MEDS ORDERED: Chloraseptic Spray 180 ml Bottle PO PRN (09:23)
[2019-10-19] MEDS ORDERED: Cepastat Lozenges 1 LOZ PO PRN (09:23)
[2019-10-19] MEDS ORDERED: Famotidine 20 MG TAB PO SCH (09:30)
[2019-10-19] MEDS ORDERED: Loratadine 10 MG TAB PO SCH (09:30)
[2019-10-19] MEDS: Amlodipine 5 MG TAB PO SCH ×2 (10:03→20:25)
[2019-10-19] MEDS: Dextrose 5 %-0.45 % NaCl 1,000 ML IV SCH ×2 (10:03→18:53)
--- NOTE | 2019-10-19 13:33 | OP ---
DATE OF PROCEDURE: 10/18/2019 PREOPERATIVE DIAGNOSIS: Left hip osteoarthritis. POSTOPERATIVE DIAGNOSIS: Left hip osteoarthritis. PROCEDURE PERFORMED: Left total hip arthroplasty. MARK UP DESIGNER: Carlo Dumont PA-C ANESTHESIA: The patient received general with epidural. ESTIMATED BLOOD LOSS: 250 cc mL. TOURNIQUET TIME: None. ANTIBIOTICS: Ancef 2 g, vancomycin 1.5 g, and TXA 1 g. IMPLANTS: Neida Trident PSL acetabular shell 50 mm, Trident 10-degree poly insert 36 mm, a Biolox Delta ceramic head 36 mm, -2.5 and a size 4 Accolade II 132- degree neck angle stem. COMPLICATIONS: None. INDICATIONS FOR PROCEDURE: Ms. Mack is a pleasant 69-year-old female presented with close to a year of left hip pain. The patient failed conservative measures and desired to proceed with a left total hip arthroplasty. I discussed with the patient risks and benefits of left total hip arthroplasty to include pain, scar, bleeding, infection, damage to vital structures, decreased range of motion and strength, continued pain, fracture above or below the stem, damage to vital structures, loss of life or limb. The patient and family understood the risks and benefits of the procedure, elected to proceed. DESCRIPTION OF PROCEDURE: Time-out was performed designating the patient's left lower extremity as the operative site based on site, consents, and marking. After the patient was placed in a lateral position with bony problems well padded, the patient had an axillary roll placed. A lateral incision was made down through skin and down to the IT band. The gluteus medius and minimus were taken up the flag to expose the capsule. The capsule was T'd and tagged. We dislocated the hip, cut the femoral neck, removed it, placed acetab retractors posteriorly, sequentially reamed up to a 50, ultimately placed a 50 PSL. We had knocked osteophytes off using our trial to decrease the peripheral osteophytes that would diminish the risk of dislocation. We placed our 10-degree liner and after placed our final cup in apppropriate version, we then moved back the femoral neck. We broached first of 3, trialed long with standard, went back to 4, was still loose, had good firm fit, placed our [address], placed 4 -2.5. This had good shuck and good range of motion. No impingement She seemed long by few millimeters. We washed and we closed the capsule with #2 Vicryl, closed the gluteus minimus to both bone tunnels as well as soft tissue with #2 Vicryl, closed the IT band with #2 Stratafix, 0 Stratafix, 2-0 Stratafix and glue. The patient will be weightbearing as tolerated. She will be admitted back to Joint Unit. We will follow inhouse. Job ID: [id number] [facility]
[2019-10-19] MEDS: HYDROcodone/Acetaminophen 5/325 mg Tablet PO PRN (17:32)
[2019-10-19] MEDS: Atorvastatin Calcium 20 MG TAB PO SCH (20:28)
[2019-10-19] MEDS: Famotidine 20 MG TAB PO SCH ×2 (20:28→20:43)
[2019-10-19] MEDS: Lisinopril 10 MG TAB PO SCH (20:28)
--- NOTE | 2019-10-19 22:26 | PDOC.HOSPP ---
- Subjective Encounter Date: 10/19/19 Encounter Time: 11:30 Subjective: Patient seen and examined med mgt. Lip swelling improving. No other complaints. No overnight events - Objective Vital Signs & Weight: Vital Signs (12 hours) Temp Pulse Resp BP BP Pulse Ox 10/19/19 20:30 98.8 F 73 16 117/69 93 L 10/19/19 20:28 117/69 10/19/19 20:25 73 117/69 10/19/19 20:08 93 L 10/19/19 15:14 98.6 F 71 18 147/77 H 96 10/19/19 12:20 98.6 F 61 18 117/71 94 L Weight Admit Weight 200 lb Weight 200 lb I&O: 10/18/19 10/19/19 10/20/19 06:59 06:59 06:59 Intake Total 2700 1950 Output Total 1375 625 Balance 1325 1325 Result Diagrams: 10/20/19 05:03 10/19/19 05:10 EKG Reviewed by me: Yes (SR) Hospitalist ROS - Review of Systems Respiratory: denies: cough, dry, shortness of breath, hemoptysis, SOB with excertion, pleuritic pain, sputum, wheezing, other Cardiovascular: denies: chest pain, palpitations, orthopnea, paroxysmal noc. dyspnea, edema, light headedness, other - Medication Medications: Active Medications Generic Name Dose Route Start Last Admin Trade Name Freq PRN Reason Stop Dose Admin Hydrocodone Bitart/Acetaminophen 1 tab 10/18/19 09:00 10/19/19 17:32 [place] 5/325 PO 1 tab Q4H PRN Administration Mild Pain 1-3 Amlodipine Besylate 5 mg 10/19/19 09:00 10/19/19 20:25 Norvasc PO 5 mg BID AV Administration Aspirin 81 mg 10/18/19 21:00 10/19/19 20:25 Ecotrin PO 81 mg BID AV Administration Atorvastatin Calcium 20 mg 10/18/19 21:00 10/19/19 20:28 Lipitor PO 20 mg HS AV Administration Cholecalciferol 5,000 units 10/19/19 09:00 10/19/19 08:49 Vitamin D3 PO 5,000 units DAILY AV Administration Cyanocobalamin 1,000 mcg 10/19/19 09:00 10/19/19 08:50 Vitamin B-12 PO 1,000 mcg DAILY AV Administration Famotidine 20 mg 10/19/19 21:00 10/19/19 20:28 Pepcid PO 20 mg BID AV Administration Famotidine 20 mg 10/19/19 21:00 10/19/19 20:43 Pepcid PO Not Given BID AV Ferrous Gluconate 324 mg 10/18/19 21:00 10/19/19 20:28 Fergon PO 324 mg BID AV Administration Fentanyl Citrate 500 mcg/ 100 mls @ 0 mls/hr 10/18/19 09:00 10/19/19 20:25 Bupivacaine HCl 10 ml/ Sodium EPIDURAL 100 mls Chloride INF AV Administration As Directed Dextrose/Sodium Chloride 1,000 mls @ 100 mls/hr 10/18/19 12:04 10/19/19 18:53 D5 1/2 Ns IV Not Given .Q10H AV Iron/Minerals/Multivitamins 1 tab 10/19/19 09:00 10/19/19 08:49 Theragran M PO 1 tab DAILY AV Administration Lisinopril 10 mg 10/19/19 21:00 10/19/19 20:28 Zestril PO 10 mg BID AV Administration Senna/Docusate Sodium 2 tab 10/18/19 21:00 10/19/19 20:28 Senokot S PO 2 tab BID AV Administration - Exam General Appearance: NAD Heart: RRR, no gallops Respiratory: no wheezes, no rales, no ronchi Gastrointestinal: non-tender, non-distended, normal bowel sounds Extremities: no cyanosis, no clubbing Hosp A/P - Plan DVT proph w/SCDs Suspected allergic reaction HTN Obesity BMI 36.6 HLD DJD CKD 2 PLAN: Cont H1,H2 blockers Cont Amlodipine and Lisinopril with holding parameters Cont PT/OT Cont other meds as above Full code. DPAO - self/family
[2019-10-20] MEDS: Dextrose 5 %-0.45 % NaCl 1,000 ML IV SCH ×2 (04:21→14:03)
[2019-10-20 05:13] LABS: Hemoglobin 9.8 g/dL (12.0-16.0); Mean Corpuscular HGB CONC 32.9 g/dL (32.0-36.0); Mean Corpuscular Hemoglobin 31.7 pg (27.0-31.0); Mean Corpuscular Volume 96.2 fL (78.0-98.0); Mean Platelet Volume 7.8 fL (7.4-10.4); Platelet Count 153 thou/uL (130-400); Red Blood Cell (RBC) Count 3.09 mill/uL (4.20-5.40); White Blood Cell (WBC) Count 7.9 thou/uL (4.8-10.8)
[2019-10-20] MEDS: Ferrous Gluconate 324 MG TAB PO SCH ×2 (09:07→22:06)
[2019-10-20] MEDS: Cyanocobalamin (Vitamin B-12) 1,000 MCG TAB PO SCH (09:08)
[2019-10-20] MEDS: Senokot S 8.6-50 MG TAB PO SCH ×2 (09:08→22:06)
[2019-10-20] MEDS: Famotidine 20 MG TAB PO SCH ×3 (09:08→22:06)
[2019-10-20] MEDS: Lisinopril 10 MG TAB PO SCH (09:08)
[2019-10-20] MEDS: Multivitamin W/ Minerals 1 TAB PO SCH (09:08)
[2019-10-20] MEDS: Aspirin 81 mg Enteric Coated Tablet PO SCH ×2 (09:08→22:06)
[2019-10-20] MEDS: Amlodipine 5 MG TAB PO SCH (09:08)
[2019-10-20] MEDS: Loratadine 10 MG TAB PO SCH (09:09)
[2019-10-20] MEDS: HYDROcodone/Acetaminophen 5/325 mg Tablet PO PRN (10:05)
[2019-10-20] MEDS ORDERED: Polyethylene Glycol 3350 17 GM Packet PO PRN (20:26)
--- NOTE | 2019-10-20 20:26 | PDOC.HOSPP ---
- Subjective Encounter Date: 10/20/19 Encounter Time: 11:30 Subjective: Patient seen and examined for med mngt. No CP/SOB. Lip swelling improving. No new complaints. No overnight events - Objective Vital Signs & Weight: Vital Signs (12 hours) Temp Pulse Resp BP BP BP Pulse Ox 10/20/19 15:21 99.6 F 70 16 110/66 89 L 10/20/19 13:08 117/55 L 10/20/19 11:46 99.8 F H 75 18 90/53 L 95 10/20/19 09:08 68 124/84 91 L Weight Admit Weight 200 lb Weight 200 lb I&O: 10/19/19 10/20/19 10/21/19 06:59 06:59 06:59 Intake Total 2700 2350 1475 Output Total 1375 1100 200 Balance 1325 1250 1275 Result Diagrams: 10/20/19 05:03 10/19/19 05:10 Hospitalist ROS - Review of Systems Respiratory: denies: cough, dry, shortness of breath, hemoptysis, SOB with excertion, pleuritic pain, sputum, wheezing, other Cardiovascular: denies: chest pain, palpitations, orthopnea, paroxysmal noc. dyspnea, edema, light headedness, other - Medication Medications: Active Medications Generic Name Dose Route Start Last Admin Trade Name Freq PRN Reason Stop Dose Admin Hydrocodone Bitart/Acetaminophen 1 tab 10/18/19 09:00 10/20/19 10:05 [place] 5/325 PO 1 tab Q4H PRN Administration Mild Pain 1-3 Aspirin 81 mg 10/18/19 21:00 10/20/19 09:08 Ecotrin PO 81 mg BID AV Administration Atorvastatin Calcium 20 mg 10/18/19 21:00 10/19/19 20:28 Lipitor PO 20 mg HS AV Administration Cholecalciferol 5,000 units 10/19/19 09:00 10/20/19 09:07 Vitamin D3 PO 5,000 units DAILY AV Administration Cyanocobalamin 1,000 mcg 10/19/19 09:00 10/20/19 09:08 Vitamin B-12 PO 1,000 mcg DAILY AV Administration Famotidine 20 mg 10/19/19 21:00 10/20/19 09:22 Pepcid PO Not Given BID AV Ferrous Gluconate 324 mg 10/18/19 21:00 10/20/19 09:07 Fergon PO 324 mg BID AV Administration Fentanyl Citrate 500 mcg/ 100 mls @ 0 mls/hr 10/18/19 09:00 10/19/19 20:25 Bupivacaine HCl 10 ml/ Sodium EPIDURAL 100 mls Chloride INF AV Administration As Directed Iron/Minerals/Multivitamins 1 tab 10/19/19 09:00 10/20/19 09:08 Theragran M PO 1 tab DAILY AV Administration Loratadine 10 mg 10/20/19 09:00 10/20/19 09:09 Claritin PO 10 mg DAILY AV Administration Senna/Docusate Sodium 2 tab 10/18/19 21:00 10/20/19 09:08 Senokot S PO 2 tab BID AV Administration - Exam General Appearance: NAD Heart: RRR, no gallops Respiratory: no wheezes, no rales Gastrointestinal: non-tender, non-distended Extremities: no cyanosis Neurological: no new deficit Hosp A/P - Plan DVT proph w/SCDs Suspected allergic reaction - improving HTN Obesity BMI 36.6 HLD DJD CKD 2 PLAN: Cont H1,H2 blockers DC Amlodipine Reduce Lisinopril dose Cont PT/OT Cont other meds
[2019-10-20] MEDS ORDERED: Lisinopril 5 MG TAB PO SCH (21:00)
[2019-10-20] MEDS ORDERED: Amlodipine 5 MG TAB PO SCH (21:00)
[2019-10-20] MEDS: Atorvastatin Calcium 20 MG TAB PO SCH (22:06)
[2019-10-21 05:21] LABS: Hemoglobin 9.2 g/dL (12.0-16.0); Mean Corpuscular HGB CONC 33.7 g/dL (32.0-36.0); Mean Corpuscular Hemoglobin 32.2 pg (27.0-31.0); Mean Corpuscular Volume 95.6 fL (78.0-98.0); Platelet Count 148 thou/uL (130-400); Red Blood Cell (RBC) Count 2.87 mill/uL (4.20-5.40); White Blood Cell (WBC) Count 7.7 thou/uL (4.8-10.8)
[2019-10-21] MEDS ORDERED: Potassium Chloride 10 MEQ TAB PO SCH (08:00)
[2019-10-21] MEDS ORDERED: Furosemide 20 MG TAB PO SCH (08:00)
[2019-10-21] MEDS ORDERED: Lisinopril 5 MG TAB PO SCH (09:00)
[2019-10-21] MEDS: Aspirin 81 mg Enteric Coated Tablet PO SCH (09:14)
[2019-10-21] MEDS: Famotidine 20 MG TAB PO SCH (09:15)
[2019-10-21] MEDS: Ferrous Gluconate 324 MG TAB PO SCH (09:15)
[2019-10-21] MEDS: Cyanocobalamin (Vitamin B-12) 1,000 MCG TAB PO SCH (09:15)
[2019-10-21] MEDS: Senokot S 8.6-50 MG TAB PO SCH (09:16)
[2019-10-21] MEDS: Loratadine 10 MG TAB PO SCH (09:16)
[2019-10-21] MEDS: Multivitamin W/ Minerals 1 TAB PO SCH (09:16)
[2019-10-21 13:34] VITALS: BP 116/80; TEMP 98.5
--- NOTE | 2019-10-21 18:27 | PDOC.HOSPP ---
- Subjective Encounter Date: 10/21/19 Encounter Time: 09:00 Subjective: Patient seen and examined for med mngt. No CP/fever or chills. No new complaints. No overnight events - Objective Vital Signs & Weight: Vital Signs (12 hours) Temp Pulse Resp BP BP Pulse Ox 10/21/19 12:00 98.5 F 67 16 116/80 95 10/21/19 09:16 70 140/84 10/21/19 08:00 98.1 F 70 16 140/84 93 L 10/21/19 07:50 93 L Weight Admit Weight 200 lb Weight 200 lb I&O: 10/20/19 10/21/19 10/22/19 06:59 06:59 06:59 Intake Total 2350 1715 Output Total 1100 200 Balance 1250 1515 Result Diagrams: 10/21/19 05:06 10/19/19 05:10 Hospitalist ROS - Review of Systems Respiratory: denies: cough, dry, shortness of breath, hemoptysis, SOB with excertion, pleuritic pain, sputum, wheezing, other Cardiovascular: denies: chest pain, palpitations, orthopnea, paroxysmal noc. dyspnea, edema, light headedness, other - Exam Neck: no JVD Gastrointestinal: non-distended Extremities: no edema Psychiatric: normal affect, A&O x 3 Hosp A/P - Plan Suspected allergic reaction - resolved HTN Obesity BMI 36.6 HLD DJD CKD 2 PLAN: Advised pt to monitor BP on daily basis - hold BP meds if SBP <120 Cont PT/OT Cont other meds Will s/o
== END 2019-10-21 13:53 | disposition swing bed (61) | DRG 470 ==
LOC: SURG A 10-18 07:01 → SURG B 10-18 14:21
PROVIDERS: ADMIT Orthopaedic Surgery; ATTEND Orthopaedic Surgery
PROC: 0SRB04A Replacement of Left Hip Joint with Ceramic on Polyethylene Synthetic Substitute, Uncemented, Open Approach (ICD-10-PCS; principal; 2019-10-18)
DX: M16.12 Unilateral primary osteoarthritis, left hip (principal); E78.5 Hyperlipidemia, unspecified; E66.9 Obesity, unspecified; I12.9 Hypertensive chronic kidney disease with stage 1 through stage 4 chronic kidney disease, or unspecified chronic kidney disease; N18.2 Chronic kidney disease, stage 2 (mild); T78.49XA Other allergy, initial encounter; X58.XXXA Exposure to other specified factors, initial encounter; Z90.710 Acquired absence of both cervix and uterus; Z79.899 Other long term (current) drug therapy; Z79.82 Long term (current) use of aspirin; Z28.21 Immunization not carried out because of patient refusal; Z68.36 Body mass index [BMI] 36.0-36.9, adult
CPT/HCPCS: 36415; 72170; 80048; 81001; 85025; 85027; 85610; 86850; 86900; 86901; 87081; 93005; J0690; J1100; J2001; J2250; J2405; J2704; J2765; J2795; J3010; J3370; J3490; J7050; S0028

== ENCOUNTER 2021-03-22 13:37 | Outpatient (CLI) | payer MEDICARE | END 2021-03-22 13:38 | disposition home or self-care (01) | LOC: BICMAMMO 13:37 | PROVIDERS: ATTEND Family Medicine | DX: Z12.31 Encounter for screening mammogram for malignant neoplasm of breast (principal) | CPT/HCPCS: 77063; 77067 ==

== ENCOUNTER 2022-10-15 12:03 | Outpatient (CLI) | payer MEDICARE | END 2022-10-15 12:04 | disposition home or self-care (01) | LOC: BICMAMMO 12:03 | PROVIDERS: ATTEND Family Medicine | DX: Z12.31 Encounter for screening mammogram for malignant neoplasm of breast (principal) | CPT/HCPCS: 77063; 77067 ==

== ENCOUNTER 2023-01-02 15:28 | Inpatient (IN) | payer MEDICARE ==
[2023-01-02] MEDS ORDERED: Ondansetron ODT 4 MG TAB PO PRN (17:36)
[2023-01-02] MEDS ORDERED: hydrALAZINE 20 MG/ML VIAL SLOW IVP PRN (17:36)
[2023-01-02] MEDS ORDERED: Ondansetron PF 4 MG/2 ML Vial IVP PRN (17:36)
[2023-01-02] MEDS ORDERED: Acetaminophen 500 MG TAB PO PRN (17:36)
[2023-01-02] MEDS ORDERED: Morphine 2 MG/ML VIAL SLOW IVP PRN (17:53)
[2023-01-02 19:45] VITALS: BMI 31.3
[2023-01-02] MEDS: Famotidine/PF 20 mg/2ml Vial SLOW IVP SCH (20:04)
[2023-01-02] MEDS: Sodium Chloride 0.9% 1,000 ML IV SCH (20:04)
[2023-01-02] MEDS ORDERED: Fentanyl 250 MCG/5 ML VIAL ONE (20:15)
[2023-01-02] MEDS ORDERED: Bupivacaine/Epinephrine 0.25% 30 ML VIAL ONE (20:32)
[2023-01-02] MEDS ORDERED: Bupivacaine HCl 0.5%/Epinephrine 1:200,000/PF 30 ml Vial ONE (20:32)
[2023-01-02] MEDS ORDERED: Phenylephrine 10 MG/ML VIAL ONE (20:46)
[2023-01-02] MEDS ORDERED: PROPOFOL 200 MG/20 ML VIAL ONE (20:46)
[2023-01-02] MEDS ORDERED: Dexamethasone 20 MG/5 ML VIAL ONE (20:46)
[2023-01-02] MEDS ORDERED: Ondansetron PF 4 MG/2 ML Vial ONE (20:46)
[2023-01-02] MEDS ORDERED: Rocuronium Bromide 10 MG/ML (10ML VIAL) ONE (20:46)
[2023-01-02] MEDS ORDERED: Lidocaine 1% PF 5 ML VIAL ONE (20:46)
[2023-01-02] MEDS ORDERED: SUGAMMADEX SODIUM 200 MG/2 ML VIAL ONE (22:20)
[2023-01-02] MEDS ORDERED: Ondansetron HCl/PF 4 MG/2 ML Vial IVP PRN (22:46)
[2023-01-02] MEDS ORDERED: Promethazine HCl 25 MG/ML VIAL IM PRN (22:46)
[2023-01-03] MEDS: Sodium Chloride 0.9% 1,000 ML IV SCH ×3 (01:20→20:16)
[2023-01-03 06:43] LABS: ALT (SGPT) 11 U/L (8-55); AST (SGOT) 12 U/L (5-34); Albumin 3.3 g/dL (3.4-4.8); Alkaline Phosphatase 52 U/L (40-110); Anion Gap 13 mmol/L (10-20); BUN (Urea Nitrogen) 19 mg/dL (9.8-20.1); Bilirubin, Total 0.5 mg/dL (0.2-1.2); Calc. Creatinine Clearance 57 mL/min (70-130); Calcium 8.5 mg/dL (7.8-10.44); Carbon Dioxide 28 mmol/L (23-31); Chloride 102 mmol/L (98-107); Estimated GFR 55; Globulin 2.4 g/dL (2.4-3.5); Glucose 157 mg/dL (83-110); Potassium 3.5 mmol/L (3.5-5.1); Protein, Total 5.7 g/dL (5.8-8.1); Sodium 139 mmol/L (136-145)
[2023-01-03 06:53] LABS: #Lymphocytes 0.3 thou/uL (1.20-3.40); #Monocytes 0.8 thou/uL (0.11-0.59); #Neutrophils 4.8 thou/uL (1.40-6.50); %Eosinophils 0.1 % (0.0-10.0); %Lymphocytes 4.2 % (21.0-51.0); %Monocytes 13.3 % (0.0-10.0); %Neutrophils 82.4 % (42.0-75.0); Hemoglobin 12.7 g/dL (12.0-16.0); MDiff Complete? YES; Mean Corpuscular HGB CONC 33.4 g/dL (32.0-36.0); Mean Corpuscular Hemoglobin 32.2 pg (27.0-31.0); Mean Corpuscular Volume 96.3 fl (78.0-98.0); Mean Platelet Volume 9.2 fL (7.4-10.4); Platelet Clumps SLIGHT; Platelet Count 145 10x3/uL (130-400); Platelet Morphology Comment Appears Adequate; Red Blood Cell (RBC) Count 3.94 mill/uL (4.20-5.40); White Blood Cell (WBC) Count 5.9 10x3/uL (4.8-10.8)
[2023-01-03] MEDS: Famotidine/PF 20 mg/2ml Vial SLOW IVP SCH ×2 (08:52→20:16)
[2023-01-04] MEDS: Famotidine/PF 20 mg/2ml Vial SLOW IVP SCH ×2 (08:20→20:50)
[2023-01-04 09:32] LABS: Anion Gap 12 mmol/L (10-20); BUN (Urea Nitrogen) 20 mg/dL (9.8-20.1); Calc. Creatinine Clearance 74 mL/min (70-130); Calcium 8.2 mg/dL (7.8-10.44); Carbon Dioxide 27 mmol/L (23-31); Chloride 109 mmol/L (98-107); Estimated GFR 75; Glucose 105 mg/dL (83-110); Potassium 3.6 mmol/L (3.5-5.1); Sodium 144 mmol/L (136-145)
[2023-01-04 09:35] LABS: Band 49 % (5-11); Hemoglobin 11.3 g/dL (12.0-16.0); Lymphocytes 16 % (21-51); MDiff Complete? YES; Mean Corpuscular HGB CONC 32.6 g/dL (32.0-36.0); Mean Corpuscular Hemoglobin 32.1 pg (27.0-31.0); Mean Corpuscular Volume 98.5 fl (78.0-98.0); Monocytes 18 % (0-10); Neutrophil 15 % (42-75); Platelet Count 179 10x3/uL (130-400); Platelet Morphology Comment Appears Adequate; Polychromasia SLIGHT = 2-3 cells (100X) (0-2/hpf); RBC Distribution Width 11.1 % (11.5-14.5); Reactive Lymphocytes 2 % (0-10); Red Blood Cell (RBC) Count 3.52 mill/uL (4.20-5.40); Reflex for Review?? YES; Vacuoles SLIGHT; White Blood Cell (WBC) Count 5.6 10x3/uL (4.8-10.8)
[2023-01-04] MEDS: Sodium Chloride 0.9% 1,000 ML IV SCH (13:35)
[2023-01-05 07:10] LABS: #Eosinphils 0.1 thou/uL (0.0-0.7); #Lymphocytes 0.9 thou/uL (1.20-3.40); #Monocytes 0.9 thou/uL (0.11-0.59); #Neutrophils 4.8 thou/uL (1.40-6.50); %Basophils 0.2 % (0.0-1.0); %Eosinophils 1.4 % (0.0-10.0); %Lymphocytes 13.5 % (21.0-51.0); %Monocytes 13.4 % (0.0-10.0); %Neutrophils 71.4 % (42.0-75.0); Hemoglobin 11.1 g/dL (12.0-16.0); Mean Corpuscular HGB CONC 31.4 g/dL (32.0-36.0); Mean Corpuscular Hemoglobin 31.3 pg (27.0-31.0); Mean Corpuscular Volume 99.7 fl (78.0-98.0); Mean Platelet Volume 8.5 fL (7.4-10.4); Platelet Count 199 10x3/uL (130-400); Red Blood Cell (RBC) Count 3.55 mill/uL (4.20-5.40); White Blood Cell (WBC) Count 6.8 10x3/uL (4.8-10.8)
[2023-01-05 07:28] LABS: Anion Gap 13 mmol/L (10-20); BUN (Urea Nitrogen) 12 mg/dL (9.8-20.1); Calc. Creatinine Clearance 88 mL/min (70-130); Calcium 8.1 mg/dL (7.8-10.44); Carbon Dioxide 22 mmol/L (23-31); Chloride 110 mmol/L (98-107); Estimated GFR 91; Glucose 92 mg/dL (83-110); Potassium 3.2 mmol/L (3.5-5.1); Sodium 142 mmol/L (136-145)
[2023-01-05] MEDS: Famotidine/PF 20 mg/2ml Vial SLOW IVP SCH ×2 (09:28→20:23)
[2023-01-05] MEDS: Sodium Chloride 0.9% 1,000 ML IV SCH ×2 (20:22→20:23)
[2023-01-06] MEDS: Sodium Chloride 0.9% 1,000 ML IV SCH (02:15)
[2023-01-06 06:27] LABS: #Eosinphils 0.1 thou/uL (0.0-0.7); #Monocytes 0.9 thou/uL (0.11-0.59); #Neutrophils 6.3 thou/uL (1.40-6.50); %Basophils 0.2 % (0.0-1.0); %Lymphocytes 12.4 % (21.0-51.0); %Monocytes 10.8 % (0.0-10.0); %Neutrophils 75.6 % (42.0-75.0); Mean Corpuscular HGB CONC 31.9 g/dL (32.0-36.0); Mean Corpuscular Hemoglobin 31.3 pg (27.0-31.0); Mean Corpuscular Volume 98.3 fl (78.0-98.0); Mean Platelet Volume 8.8 fL (7.4-10.4); Platelet Count 179 10x3/uL (130-400); Red Blood Cell (RBC) Count 3.51 mill/uL (4.20-5.40); White Blood Cell (WBC) Count 8.3 10x3/uL (4.8-10.8)
[2023-01-06 06:49] LABS: Anion Gap 16 mmol/L (10-20); BUN (Urea Nitrogen) 6 mg/dL (9.8-20.1); Calc. Creatinine Clearance 92 mL/min (70-130); Calcium 8.1 mg/dL (7.8-10.44); Carbon Dioxide 23 mmol/L (23-31); Chloride 106 mmol/L (98-107); Estimated GFR 92; Glucose 92 mg/dL (83-110); Potassium 2.9 mmol/L (3.5-5.1); Sodium 142 mmol/L (136-145)
[2023-01-06] MEDS: Famotidine/PF 20 mg/2ml Vial SLOW IVP SCH (09:54)
[2023-01-06] MEDS: Potassium Chloride 20 MEQ in Premix Bag 1 BAG IVPB SCH ×3 (09:54→20:47)
[2023-01-06] MEDS ORDERED: traMADol HCl 50 MG TAB PO PRN (14:03)
[2023-01-06] MEDS ORDERED: Cyclobenzaprine 10 MG TAB PO PRN (14:03)
[2023-01-06] MEDS: Lidocaine 4% Patch TD SCH (18:24)
[2023-01-06] MEDS: Aspirin 81 mg Enteric Coated Tablet PO SCH (20:47)
[2023-01-06] MEDS ORDERED: Atorvastatin Calcium 20 MG TAB PO SCH (21:00)
[2023-01-07] MEDS ORDERED: LIDOCAINE Patch Removal TOP SCH (03:00)
[2023-01-07] MEDS ORDERED: Potassium Chloride 20 MEQ TAB PO SCH (07:45)
[2023-01-07] MEDS ORDERED: Amlodipine 10 MG TAB PO SCH (09:00)
[2023-01-07] MEDS ORDERED: Lisinopril 20 MG TAB PO SCH (09:00)
[2023-01-07] MEDS: Aspirin 81 mg Enteric Coated Tablet PO SCH (09:05)
[2023-01-07 09:51] LABS: Anion Gap 13 mmol/L (10-20); BUN (Urea Nitrogen) 5 mg/dL (9.8-20.1); Calc. Creatinine Clearance 81 mL/min (70-130); Calcium 8.8 mg/dL (7.8-10.44); Carbon Dioxide 29 mmol/L (23-31); Chloride 103 mmol/L (98-107); Estimated GFR 83; Glucose 181 mg/dL (83-110); Magnesium 1.8 mg/dL (1.6-2.6); Potassium 3.6 mmol/L (3.5-5.1); Sodium 141 mmol/L (136-145)
[2023-01-07 09:54] LABS: Phosphorus 1.5 mg/dL (2.3-4.7)
[2023-01-07] MEDS ORDERED: Potassium Phosphate 30 MMOL in Sodium Chloride 0.9% 250 ML 250 ML IVPB SCH (11:00)
[2023-01-07] MEDS: Lidocaine 4% Patch TD SCH (15:24)
[2023-01-07 16:33] VITALS: BP 144/88; TEMP 98
[2023-01-07] MEDS ORDERED: PHOS-NAK 1 PKT PACK PO SCH (21:00)
== END 2023-01-07 18:26 | disposition home or self-care (01) | DRG 336 ==
LOC: SURG A 15:28
PROVIDERS: ADMIT Family Medicine; ATTEND Internal Medicine
PROC: 0DNW0ZZ Release Peritoneum, Open Approach (ICD-10-PCS; principal; 2023-01-02)
PROC: 0D9770Z Drainage of Stomach, Pylorus with Drainage Device, Via Natural or Artificial Opening (ICD-10-PCS; 2023-01-02)
DX: K44.0 Diaphragmatic hernia with obstruction, without gangrene (principal); E87.20 Acidosis, unspecified; K56.50 Intestinal adhesions [bands], unspecified as to partial versus complete obstruction; N17.9 Acute kidney failure, unspecified; I10 Essential (primary) hypertension; E78.5 Hyperlipidemia, unspecified; D69.6 Thrombocytopenia, unspecified; E87.6 Hypokalemia; E83.39 Other disorders of phosphorus metabolism; E88.09 Other disorders of plasma-protein metabolism, not elsewhere classified; M19.90 Unspecified osteoarthritis, unspecified site; Z96.642 Presence of left artificial hip joint; Z96.651 Presence of right artificial knee joint; Z90.710 Acquired absence of both cervix and uterus; Z79.899 Other long term (current) drug therapy
CPT/HCPCS: 36415; 80048; 80053; 83735; 84100; 85025; 85060; J1100; J2272; J2370; J2405; J2704; J3010; J3480; J7050; S0028

== ENCOUNTER 2024-07-15 10:50 | Outpatient (CLI) | payer MEDICARE | END 2024-07-15 10:51 | disposition home or self-care (01) | LOC: BICMAMMO 10:50 | PROVIDERS: ATTEND Nurse Practitioner Family | DX: Z13.820 Encounter for screening for osteoporosis (principal); Z78.0 Asymptomatic menopausal state | CPT/HCPCS: 77080 ==